=== PATIENT | female | born 1965 | race American Indian/Alaskan Native ===

== ENCOUNTER 2019-05-07 11:34 | Outpatient (CLI) | payer OTHER ==
--- NOTE | 2019-05-07 12:17 | Mammography Report ---
LEFT DIGITAL DIAGNOSTIC MAMMOGRAM HISTORY: Follow-up circumscribed mass at 1:00. TECHNIQUE: Routine 2-D views.] COMPARISON: [facility] 10/19/2018 FINDINGS: Breast Density: Scattered fibroglandular appearance of the breast tissue. No mass, architectural distortion or suspicious calcifications. The previously described density is l ess prominent on this exam. IMPRESSION: No mammographic evidence of malignancy. Recommend return to routine mammographic screening. BIRADS 1: Negative. FURTHER INFORMATION: According to the [employer], yearly mammograms are recommend ed starting at age 40 and continuing as long as a woman is in good health. Clinical Breast Exams shou ld be part of a periodic health exam-about every 3 years for women in their 20s and 30s and every yea r for women 40 and over. Breast self exam is an option for women starting in their 20s. Any breast ch rahul noted on a breast self exam should be reported promptly to the patient's healthcare provider. Br east MRI is recommended for women with an approximately 20-25% or greater lifetime risk of breast can cer, including women with a strong family history of breast or ovarian cancer and women who have been treated for Hodgkin's disease. A negative Mammography report should not discourage follow up or biopsy of a clinically significant f inding and/or abnormality. Dense breast tissue may obscure small neoplasms. The patient will be entered into a reminder system with a target due date for the next screening mamm ogram. Signer Name: Abbe Draper MD Signed: 05/07/2019 12:13 PM Workstation Name: [id number]
== END 2019-05-07 11:35 | disposition home or self-care (01) ==
LOC: SPVWC 11:34
PROVIDERS: ATTEND Internal Medicine
DX: R92.8 Other abnormal and inconclusive findings on diagnostic imaging of breast (principal)

== ENCOUNTER 2022-05-09 09:14 | Outpatient (CLI) | payer OTHER ==
--- NOTE | 2022-05-13 08:23 | Mammography Report ---
DIGITAL SCREENING MAMMOGRAM WITH CAD, 05/09/2022 CLINICAL INFORMATION / INDICATION: Routine screening mammography. TECHNIQUE: Digital bilateral 2D mammography was obtained in the craniocaudal and mediolateral obliqu e projections. This examination was interpreted with the benefit of Computer-Aided Detection analysis . COMPARISON: 10/11/2018 FINDINGS: Breast Density: There are scattered areas of fibroglandular density. No dominant mass, suspicious calcifications, or architectural distortion in either breast. No interval change. IMPRESSION: No mammographic evidence of malignancy. Follow up recommendation: Routine yearly screening mammogram. BI-RADS Category 1: NEGATIVE A "normal" or negative report should not discourage follow up or biopsy of a clinically significant f inding. A written summary of these findings will be mailed to the patient. The patient will be entered into a mammography reporting system which will generate a reminder letter for the patient's next appointmen t at the appropriate interval. The [employer] recommends yearly mammograms starting at age 40 and continuing as l dani as a woman is in good health. Breast MRI is recommended for women with an approximate 20-25% or greater lifetime risk of breast cancer, including women with a strong family history of breast or ova drew cancer or who have been treated for Hodgkin's disease. Signer Name: Charlotte Clancy MD Signed: 05/13/2022 8:19 AM Workstation Name: [employer]
== END 2022-05-09 09:15 | disposition home or self-care (01) ==
LOC: MAMMO 09:14
DX: Z12.31 Encounter for screening mammogram for malignant neoplasm of breast (principal)
CPT/HCPCS: 77067